=== PATIENT | female | born 1940 | race Caucasian/White ===

== ENCOUNTER → 2018-09-20 10:13 | Outpatient (CLI) | payer MEDICARE, BC, OTHER, SELFPAY ==
[2018-09-20 11:07] LABS: Add Manual Diff / Slide Review NO; Basophils Percent Auto 0.8 % (0-2); Eosinophils Percent Auto 3.1 % (2-4); Hematocrit 42.4 % (36-46); Hemoglobin 14.4 g/dL (12.0-16.0); Lymphocytes Percent Auto 19.9 % (25-40); Mean Corpuscular HGB Conc 34.1 % (30-36); Mean Corpuscular Hemoglobin 31.4 PG (26-34); Mean Corpuscular Volume 92.3 fL (80-100); Monocytes Percent Auto 9.6 % (3-14); Neutrophils Absolute Auto 4400 /uL (1500-7000); Neutrophils Percent Auto 66.6 % (50-75); Platelet Count 264 X10^3/uL (150-400); Red Blood Cell Count 4.59 X10^6/uL (4.0-5.2); Red Cell Distribution Width 13.8 % (11.6-14.8); White Blood Cell Count 6.7 X10^3/uL (4.5-11.0)
[2018-09-20 11:33] LABS: Alanine Aminotransferase 28 IU/L (9-52); Albumin 4.4 g/dL (3.5-5.0); Albumin Globulin Ratio 1.3 (1.0-2.8); Alkaline Phosphatase 80 U/L (38-126); Aspartate Aminotransferase 31 IU/L (14-36); BUN Creatinine Ratio 17.1 (6-22); Bilirubin Total 0.4 mg/dL (0.2-1.3); Blood Urea Nitrogen 12 mg/dL (7-17); Calcium 9.2 mg/dL (8.4-10.2); Carbon Dioxide 26 mmol/L (22-32); Chloride 104 mmol/L (98-107); Cholesterol 184 mg/dL (140-199); Estimated Glomerular Filt Rate > 60.0 mL/min (>60); Globulin 3.3 g/dL (1.7-4.1); Glucose 103 mg/dL (80-110); HDL Cholesterol 47 mg/dL (40-60); HEMOLYSIS < 15 (0-50); LDL Cholesterol Calculated 116 mg/dL (<100); Potassium 4.2 mmol/L (3.4-5.1); Sodium 143 mmol/L (137-145); Total Protein 7.7 g/dL (6.3-8.2); Triglycerides 105 mg/dL (35-150)
[2018-09-20 11:58] LABS: Thyroid Stimulating Hormone 3.57 uIU/mL (0.47-4.68)
== END ==
PROVIDERS: PCP Family Medicine; Visit Provider Family Medicine
DX: I10 Essential (primary) hypertension (principal)
CPT/HCPCS: 36415; 80053; 80061; 84443; 85025

== ENCOUNTER 2018-12-03 09:44 | Outpatient (CLI) | payer MEDICARE, OTHER, BC, SELFPAY ==
[2018-12-03] VITALS (12 sets, daily range): BP systolic 134–161; BP diastolic 69–93; PULSE 64–74; RESP 16–18; TEMP 36.6; O2SAT 89–97
--- NOTE | 2018-12-03 09:45 | DI.RAD.S_ITS ---
PROCEDURE: PAIN L INTERLAMINAR/CAUDAL INJ INDICATIONS: Lumbosacral spondylosis FINDINGS: Fluoroscopic spot filming was performed to verify placement of spinal needles at the L3-L4 level(s), as labeled on the films. Appropriate location(s) of the needle tip(s) was confirmed by injection of iodinated contrast. Dictated by: Maverick Barrios M.D. on 12/03/2018 at 12:47 Approved by: Maverick Barrios M.D. on 12/03/2018 at 12:47
[2018-12-03] MEDS: MIDAZOLAM 5 MG/5 ML VIAL IV (10:26)
[2018-12-03] MEDS: DEXAMETHASONE 10 MG/ML VIAL 20 MG INJ (10:33)
[2018-12-03] MEDS: IOPAMIDOL 15 ML VIAL 3 ML INJ (10:33)
[2018-12-03] MEDS: BUPIVACAINE 0.25% (PF) VIAL 2 ML INJ (10:33)
--- NOTE | 2018-12-03 10:38 | PC.NURSE ---
assisting pt off table and transporting to post proc area in stable condition
--- NOTE | 2018-12-03 10:42 | P.PCN_ITS ---
Procedures Date/Time Date of procedure: 12/03/18 Time of procedure: 10:41 General Procedure description: POST OP DIAGNOSIS 1. HNP WITH RADICULAR FEATURES, 2. MULTILEVEL CENTRAL STENOSIS, PROCEDURES 1. FLUORSCOPICALLY GUIDED CONTRAST CONTROLLED INTERLAMINAR EPIDURAL STEROID INJECTION - L3/4 PHYSICIAN: Chai Ellison, INDICATIONS Veronica is referred by for treatment of Bilateral Foraminal Stenosis L>R LE symptoms. FINDINGS Multilevel Central Spinal Stenosis with Nerve Root Compression DESCRIPTION OF PROCEDURE Fluoroscopically guided, contrast-controlled L3/4 translaminar epidural steroid injection. Following denial of allergy and review of potential side effects and complications, including, but not necessarily limited to, infection, allergic reaction, local tissue breakdown, temporary as well as permanent nerve injury, paralysis, stroke and possible , the patient indicated that the patient understood and agreed to proceed. An informed consent document was signed by the patient, witnessed by a nurse, and placed in the patient's chart. Additionally, other treatment options including modalities, medications, and physical therapy were reviewed with the patient. After review of previous anaesthesic history and IV conscious sedation the patient was deemed safe to proceed with todays procedure with IV conscious sedation as ASA class II designation. Safety time-out was performed to confirm p atient ID, procedure to be performed and site of procedure. IV sedation was accomplished with a combination of 3mg of Versed was administered by the RN after DO order, titrated to patient comfort during the course of the procedure while the patient remained responsive to all verbal commands. In the prone position, following sterile prep and drape of the lumbar region, the L3/4 translaminar space was identified fluoroscopically. The skin was anesthetized via a 25-gauge, 1.5-inch needle with 1% lidocaine solution. At this point, a 22-gauge short bevel spinal needle was atraumatically introduced and advanced under fluoroscopic guidance into the region of the L3/4 translaminar space. Depth was confirmed on lateral view. Radiological data, including multiple fluoroscopic views of the lumbar spine, reveal a spinal needle at the L3/4 translaminar space. Lateral views then show placement of the needle in the epidural space. Subsequent views show contrast material flowing superiorly and inferiorly in the epidural space. No vascular or intrathecal uptake is observed. At this point, using loss of resistance technique with saline and air, the epidural space was entered. This was confirmed following negative aspiration with injection of approximately 1.5 cc of Isovue 200, showing excellent epidural flow without vascular or intrathecal uptake. At this point, 1 cc of 1% lidocai ne solution combined with 2cc or 20mg of dexamethasone was injected without incident. The patient tolerated the procedure well without signs or symptoms of complications prior to transfer to the recovery area continued monitoring without incident. The patient was then transferred to the recovery area where they were observed for an appropriate period of time after the injection. The patient reported a VAS score of 6 prior to the procedure and a post- procedure VAS of 0. Total Fluoroscopy Time: 11.8 seconds Total Conscious Sedation Time: 24min POST OP INSTRUCTIONS The patient was provided a Pain Log to continue to record their response to the target-specific procedure prior to follow-up visit with their referring physician. Additionally, specific post-injection care instructions and a contact number to our office were provided if concerns arise regarding possible complications associated with the procedure are suspected. Chai Ellison DO Complications: none
--- NOTE | 2018-12-03 11:01 | PC.NURSE ---
pt returned post procedure a little groggy but able to move from w/c to chair on own power with direction. REsumed monitoring from Anne FERGUSON.
--- NOTE | 2018-12-03 11:03 | PC.NURSE ---
instructed pt to take some deep breaths related to lower oxygen level. it bumped up to 97%
--- NOTE | 2018-12-03 11:09 | PC.NURSE ---
Turned oxygen off to see if she can maintain without it.
--- NOTE | 2018-12-03 11:12 | PC.NURSE ---
She was awake enough to take some deep breaths and her o2 went up to 97% then back down to 92%
--- NOTE | 2018-12-03 11:20 | PC.NURSE ---
pt awakens easily, her o2 sat dropped and I asked her to take a deep breath. When asked if she has sleep apnea she said yes. Once she wakes up her sats are 95-97% but when she is dozing she is down to 89-92%. She doesn't feel ready to go just yet.
--- NOTE | 2018-12-03 11:46 | PC.NURSE ---
pt tolerated standing up, she woke up on her own. Maintained 02 sats at 92% while dozing and increased when she was alert and awake. pt discharged to home with her son without problems.
--- NOTE | 2018-12-04 15:57 | PC.NURSE ---
Follow up call for post TL LURDES made and pt reports she normally has insomnia so that wasn't unusual. Her right side feels really good but the left side she is good for about 10 and then she has to sit down. She is hoping it will get better. Otherwise she is doing well.
== END 2018-12-03 11:43 ==
LOC: RAD 09:45
PROVIDERS: PCP Family Medicine; Visit Provider Physical Medicine & Rehabilitation
DX: M51.16 Intervertebral disc disorders with radiculopathy, lumbar region (principal); M48.062 Spinal stenosis, lumbar region with neurogenic claudication; M43.16 Spondylolisthesis, lumbar region; M47.27 Other spondylosis with radiculopathy, lumbosacral region
CPT/HCPCS: 62323; 99152; J1100; J2250

== ENCOUNTER → 2019-08-28 10:46 | Outpatient (CLI) | payer MEDICARE, BC, OTHER, SELFPAY ==
--- NOTE | 2019-08-28 10:48 | DI.RAD.S_ITS ---
PROCEDURE: XR SHOULDER LT MIN 2V INDICATIONS: Pain TECHNIQUE: 3 views of the shoulder were acquired. COMPARISON: [facility], , SHOULDER MINIMUM 2 VIEW LEFT, 02/17/2014, 16:37. FINDINGS: Bones: No acute fracture dislocation. Mild degenerative changes are present at the acromioclavicular joint and severe degenerative changes are present at the glenohumeral joint. Visualized ribs are intact. Soft tissues: No suspicious soft tissue calcifications. IMPRESSION: Degenerative change. Dictated by: Mila Crowell M.D. on 08/28/2019 at 11:36 Approved by: Mila Crowell M.D. on 08/28/2019 at 11:36
== END ==
PROVIDERS: PCP Family Medicine; Visit Provider Family Medicine
DX: M25.512 Pain in left shoulder (principal)
CPT/HCPCS: 73030

== ENCOUNTER → 2019-11-25 10:47 | Outpatient (CLI) | payer MEDICARE, OTHER, SELFPAY ==
[2019-11-25 13:08] LABS: Add Manual Diff / Slide Review NO; Basophils Absolute Auto 100 /uL (0-100); Basophils Percent Auto 0.6 % (0-2); Eosinophils Absolute Auto 200 /uL (0-450); Hematocrit 40.1 % (36-46); Hemoglobin 13.7 g/dL (12.0-16.0); Lymphocytes Absolute Auto 1400 /uL (1100-4500); Lymphocytes Percent Auto 17.2 % (25-40); Mean Corpuscular HGB Conc 34.2 % (30-36); Mean Corpuscular Volume 93.5 fL (80-100); Monocytes Absolute Auto 700 /uL (0-900); Monocytes Percent Auto 8.1 % (3-14); Neutrophils Absolute Auto 5900 /uL (1500-7000); Neutrophils Percent Auto 72.1 % (50-75); Platelet Count 292 X10^3/uL (150-400); Red Blood Cell Count 4.28 X10^6/uL (4.0-5.2); Red Cell Distribution Width 14.4 % (11.6-14.8); White Blood Cell Count 8.2 X10^3/uL (4.5-11.0)
[2019-11-25 13:48] LABS: BUN Creatinine Ratio 24.3 (6-22); Blood Urea Nitrogen 17 mg/dL (7-17); Calcium 9.6 mg/dL (8.4-10.2); Carbon Dioxide 29 mmol/L (22-32); Chloride 102 mmol/L (98-107); Estimated Glomerular Filt Rate > 60.0 mL/min (>60); Glucose 83 mg/dL (80-110); HEMOLYSIS < 15 (0-50); Potassium 4.4 mmol/L (3.4-5.1); Sodium 140 mmol/L (137-145)
== END ==
PROVIDERS: PCP Family Medicine; Referring Provider Family Medicine; Visit Provider Family Medicine
DX: Z01.818 Encounter for other preprocedural examination (principal); Z01.812 Encounter for preprocedural laboratory examination; I10 Essential (primary) hypertension
CPT/HCPCS: 36415; 80048; 85025; 93005; 93010

== ENCOUNTER → 2020-03-01 12:36 | Outpatient (CLI) | payer MEDICARE, OTHER, BC, SELFPAY ==
[2020-03-01 13:25] LABS: Add Manual Diff / Slide Review NO; Basophils Absolute Auto 0 /uL (0-100); Basophils Percent Auto 0.6 % (0-2); Eosinophils Absolute Auto 100 /uL (0-450); Eosinophils Percent Auto 1.8 % (2-4); Hematocrit 41.7 % (36-46); Lymphocytes Absolute Auto 1100 /uL (1100-4500); Lymphocytes Percent Auto 14.3 % (25-40); Mean Corpuscular HGB Conc 33.7 % (30-36); Mean Corpuscular Hemoglobin 31.3 PG (26-34); Monocytes Absolute Auto 600 /uL (0-900); Monocytes Percent Auto 7.4 % (3-14); Neutrophils Absolute Auto 6000 /uL (1500-7000); Neutrophils Percent Auto 75.9 % (50-75); Platelet Count 272 X10^3/uL (150-400); Red Blood Cell Count 4.49 X10^6/uL (4.0-5.2); Red Cell Distribution Width 13.8 % (11.6-14.8); White Blood Cell Count 7.9 X10^3/uL (4.5-11.0)
[2020-03-01 13:55] LABS: Carbon Dioxide 26 mmol/L (22-32); Chloride 106 mmol/L (98-107); HEMOLYSIS < 15 (0-50); Potassium 4.8 mmol/L (3.4-5.1); Sodium 139 mmol/L (137-145)
== END ==
PROVIDERS: PCP Family Medicine; Referring Provider Orthopaedic Surgery; Visit Provider Orthopaedic Surgery
DX: Z01.812 Encounter for preprocedural laboratory examination (principal); Z01.818 Encounter for other preprocedural examination
CPT/HCPCS: 36415; 80051; 85025

== ENCOUNTER → 2020-03-07 11:24 | Outpatient (CLI) | payer MEDICARE, OTHER, BC, SELFPAY ==
[2020-03-08 02:48] LABS: COVID19 Sendout Not Detected (Not Detect)
== END ==
PROVIDERS: PCP Family Medicine; Visit Provider Physician Assistant
DX: Z01.812 Encounter for preprocedural laboratory examination (principal)
CPT/HCPCS: 87635

== ENCOUNTER 2020-03-10 06:45 | Day surgery (SDC) | payer MEDICARE, OTHER, SELFPAY ==
[2020-03-04 13:51] VITALS: BMI 40.8
[2020-03-10] VITALS (24 sets, daily range): BP systolic 97–152; BP diastolic 49–96; PULSE 55–77; RESP 12–22; TEMP 36.1–36.6; O2SAT 88–99; BMI 40.2
--- NOTE | 2020-03-10 | DI.RAD.S_ITS ---
PROCEDURE: XR KNEE LT 1TO2V INDICATIONS: LEFT TOTAL KNEE TECHNIQUE: 2 view(s) of the knee acquired. COMPARISON: None. FINDINGS: Bones: Patient is status post knee joint arthroplasty. Hardware components are in expected positions. Visualized bony structures are intact. Soft tissues: Overlying postoperative changes are noted. IMPRESSION: Expected postsurgical changes with total knee arthroplasty. Dictated by: Freddie Arreola M.D. on 03/10/2020 at 10:36 Approved by: Freddie Arreola M.D. on 03/10/2020 at 10:37
[2020-03-10] MEDS: LACTATED RINGERS 1,000 ML 42 ML IV ×2 (07:20→08:53)
[2020-03-10] MEDS: ACETAMINOPHEN 325 MG TABLET 975 MG PO (07:35)
--- NOTE | 2020-03-10 07:40 | PM.PREOP ---
Pre-operative Note COVID-19 COVID-19 status: Negative Result date/Date tested (Pos, Neg/Pending): 03/08/20 Interval Note History & Physical reviewed/Exam performed by Physician: Yes Changes to H&P: No
--- NOTE | 2020-03-10 07:41 | PM.OP.1 ---
Operative Date/Time/Diagnoses Date of procedure: 03/10/20 Time of procedure: 09:30 Pre-op diagnosis: Left knee osteoarthritis Post-op diagnosis: same Procedure & Clinicians Procedure: Left total knee arthroplasty Same procedure as scheduled: Yes Indications: The patient presents today for total knee arthroplasty after failure of conservative treatment. The nature of the procedure including the risks and benefits, alternatives, postoperative course and expected outcome were discussed and all questions answered. Consent was obtained. Operative site confirmed and marked. Surgeon: Frank Omalley Band Builder: Damaris Torres Anesthesia Type: General, Spinal and Local Operative Notes Findings: The patient's knee was in valgus alignment. Lateral capsule was released with a 15 blade in a pie crust technique to balance the knee. The knee then had excellent patellar tracking, balance and stability throughout motion. The standard +0 femoral cut was made and approximately 8 mm removed from the less affected medial side. Closure Type: primary Specimen(s): none sent Prosthetic devices, grafts, tissues, transplants, or devices: Val[employer]hew [employer]o BCS: 6 femoral component, 4 tibial component, 9 mm BCS polyethylene tray and 35 x 9 mm round patella Applied: implant(s) Estimated Blood Loss (mL): 10 Blood products transfused: none Tourniquet time (min): 60 Procedure in detail: The patient was taken to the operative suite and placed under anesthesia. The patient was given prophylactic antibiotics prior to surgery. The patient was also given tranexamic acid, 1 g, just prior to surgery for postoperative hemostasis. The lateral knee was prepped and the joint injected with 20 mL of 1% Lidocaine with epinephrine. The knee was then prepped and draped in usual sterile fashion. The leg was exsanguinated with an Esmarch dressing and the tourniquet raised to 250 torr. A 15 cm anterior incision was made. Next a medial trivector arthrotomy was made. The extensor mechanism was marked to ensure accurate repair. Initial exposing dissection was carried out medially and laterally. The knee was then flexed and the intramedullary femoral guide julio placed. The distal femoral cut was made in 6? of valgus at the +0 position. The femoral size was measured and the appropriate cutting block was then placed and the anterior, posterior and chamfer cuts made. The intramedullary tibial alignment julio was then placed. The guide was set to remove approximately 8 mm from the less affected medial side. The proximal tibial cut was then made with an oscillating saw. All meniscus and bony debris was then removed. Posterior femoral osteophytes removed with a curved osteotome. Flexion extension gaps were checked. The knee was tight laterally as expected from her preoperative alignment. This was corrected with percutaneous release of the lateral capsule using a 15 blade in a pie crust technique. The soft tissues were then injected with a combination of 20 mL of half percent Marcaine with epinephrine and 20 mL of Exparel. The trial components were then placed. The knee was then extended and the patellar thickness was measured and a cut made removing approximately 9 mm of bone. The patella was then sized and drilled. Some excess lateral bone was excised and the patellofemoral ligament released. The knee went into full extension and flexion beyond 130?. There was excellent medial-lateral balance throughout motion. Patellar tracking was excellent. The trial components were removed and the knee was cleansed with Pulsavac irrigation and dried. The final components were cemented with high viscosity vacuum mixed bone cement with antibiotics. The joint was filled with a dilute Betadine solution. The knee was held in extension and the patellar clamped until the cement was adequately cured. The knee was then irrigated. The extensor mechanism was closed with 5 interrupted #1 Vicryl sutures and a running Quill suture at approximately 90 degrees of flexion. The joint was then injected with a combination of 1 g of tranexamic acid and 20 mL of quarter percent Marcaine with epinephrine. The subcutaneous tissue was closed with 2 0 Vicryl. The skin was closed with absorbable subcuticular sutures and surgical adhesive. An Aquacel dressing and Tom wrap were then applied. The patient tolerated the procedure well and was returned to recovery room in good condition. Complications: none Post-operative Condition: stable Disposition: PACU Plan for aftercare: [facility] protocol
[2020-03-10] MEDS: CEFAZOLIN 2 GM/100 ML FROZ.PIGGY IV ×2 (07:45→16:10)
--- NOTE | 2020-03-10 08:22 | SUR.OPER ---
Supine on padded OR bed. Pillow under head, arms secured on padded armboards <90 degree abduction. Safety belt across torso. Non-operative leg secured with tape over blanket over lower leg. Operative leg secured in [place] positioner. Foam padded brace at thigh of operative leg.
[2020-03-10] MEDS: BUPIVACAINE 0.5% W/ EPI (PF) 20 ML, BUPIVACAINE LIPOSOME 266 MG, SODIUM CHLORIDE 0.9% 2... INJ (08:30)
[2020-03-10] MEDS: BUPIVACAINE 0.5% W/ EPI (PF) 10 ML, TRANEXAMIC ACID 1,000 MG, SODIUM CHLORIDE 0.9% 20 ML INJ (08:34)
[2020-03-10] MEDS: LIDOCAINE 1% W/EPI 20 ML INJ (08:35)
--- NOTE | 2020-03-10 11:00 | SUR.PHASEI ---
Pt to room 204 per bed with 2 RN's, bedside report to RN, SCD's hooked up and first set of vitals taken, checked OP Site with RN, pt talking and taking ice Chips, denies pain and nausea.
[2020-03-10] MEDS: LACTATED RINGERS 1,000 ML 100 ML IV ×2 (11:16→22:09)
[2020-03-10] MEDS: OXYCODONE IR 10 MG TABLET PO (12:09)
[2020-03-10] MEDS: IBUPROFEN 400 MG TABLET PO ×2 (13:37→16:11)
[2020-03-10] MEDS: ACETAMINOPHEN 325 MG TABLET 650 MG PO ×2 (13:38→20:24)
[2020-03-10] MEDS: HYDROMORPHONE 0.5 MG INJ 0.2 MG IV (13:38)
--- NOTE | 2020-03-10 14:30 | PT.IIE ---
Current Diagnoses Loose body in unspecified joint (03/10/20) Other tear of lateral meniscus, current injury, left knee, initial encounter (03/10/20) Surgery Performed Operation Date: 03/10/20 07:45 Actual Procedures p Total Knee Arthroplasty(Left) - Frank Omalley MD Surgical History (Last Updated 03/04/20 @ 14:09 by Char Garland, RN) History of bunionectomy of left great toe (Acute) History of esophagogastroduodenoscopy (EGD) (Acute) Hx of bilateral cataract extraction (Acute) Hx of tonsillectomy (Acute) Medical History (Last Updated 03/04/20 @ 14:09 by Char Garland RN) Back pain (Acute) Depression (Acute) Dermatitis (Acute) DJD (degenerative joint disease) (Acute) Esophageal spasm (Acute) Foraminal stenosis of lumbar region (Chronic) Former smoker (Acute) GERD (gastroesophageal reflux disease) (Acute) Headache, migraine (Acute) HTN (hypertension) (Acute) LBBB (left bundle branch block) (Acute) RASHI (obstructive sleep apnea) (Acute) Sinusitis (Acute) Physical Therapy Inpatient Evaluation/Re-Eval M1 PT/OT-IP Prior Functional Status Start: 03/10/20 17:27 Freq: NEEDED Status: Active Protocol: Document 03/10/20 14:30 AB (Rec: 03/10/20 17:49 AB [id number]) Medical Review Prior Functional Status Medical History Reviewed Yes Communication able to make needs known Mobility and Gait pt stated that she is independent with all mobilities and ambulation without AD indoors but occsionally uses her 4WW ; uses 4WW for outdoor mobility Social History Household Members children,other Living Arrangements House Number of Floors (Floors) One Floor Number of Stairs To Enter/Railing? no steps to enter Home Environment High Toilet,Tub/Shower Home Equipment Four Wheel Walker,Hand Held Shower,Grab Bars Near Toilet, Grab Bars In Shower Additional Social History Comment pt lives with her grand daughter and grand daughter's spouse but both works pt has a toilet safety frame and an adjustable bed M2 PT-IP Current Condition Start: 03/10/20 17:27 Freq: NEEDED Status: Active Protocol: Document 03/10/20 14:30 AB (Rec: 03/10/20 17:49 AB [id number]) Physical Therapy Current Condition Current Condition Evaluation Date 03/10/20 Treatment Diagnosis s/p L TKA; difficulty in walking Onset Date 03/10/20 Weight Bearing Status Weight Bearing Status Weight Bear as Tolerated Allowed Weight Bearing Amount (enter % LLE WBAT or #) (%) M3 PT-IP Subjective Start: 03/10/20 17:27 Freq: NEEDED Status: Active Protocol: Document 03/10/20 14:30 AB (Rec: 03/10/20 17:49 AB [id number]) Subjective Physical Therapy Visit Type Type Initial Evaluation Visit Start Time 14:30 Visit Stop Time 15:15 Total Visit Minutes 45 Number of GEAR KEEPER Visits 0 Physical Therapy Visit Comments Patient Comments pt agreeable to do PT Therapy Pain Assessment Pain When Pain Assessed At Rest Pain Present Pain Present Pain Reported Location Left Knee Intensity 5 Scale Used Numeric (0 - 10) Pain Management Techniques Apply Cold,Re-positioning, Timing of Activity with Medications M4 PT-IP Mobility and Gait Start: 03/10/20 17:27 Freq: NEEDED Status: Active Protocol: Document 03/10/20 14:30 AB (Rec: 03/10/20 17:49 AB [id number]) PT-Bed Mobility Assessment Supine to Sit Supine to Sit Standby Assistance Sit to Supine Sit to Supine Standby Assistance Scooting Scooting to Edge of Bed Standby Assistance PT-Transfer Assessment Sit to and From Stand Sit to and from Stand Contact Guard Assistance, Minimal Assistance,1 Person Assistance,Use of Upper Extremities Equipment Transfer Assistive Device Gait Belt,Front Wheeled Walker Orthotic/Prosthetic Devices or Brace: No Transfers Transfer Destination Chair,Bedside Commode Transfer Technique Stand Step Pivot Transfer Ability Level of Assist Contact Guard Assistance, Minimal Assistance,1 Person Assistance,Use of Upper Extremities Comments Mobility Comments completed supine to sit SBA. required SBA for sitting on EOB. pt stated that she is leaking upon sitting. bedside commode positioned next to pt . completed sit to stand CGA to min A and completed step transfer using FWW min A. completed sit to stand from commode CGA and ambulated towards the chair ~ 12 ft min A. pt without any complains and agreed to walk more and completed ambulation using FWW ~ 35 ft CGA to min A. pt agreed to sit up on chair. positioned pt on chair. call light and table placed within reach. Gait Assessment Gait Gait Assistance Required: Contact Guard Assist,Minimum Assistance Distance (Feet) 35 Able to Maintain Weight Bearing Status Yes During Gait Assistive Devices Assistive Device Gait Belt,Front Wheeled Walker Orthotic/Prosthetic Devices or Brace: No Gait Deviations General Gait Pattern Antalgic,Decreased Stride Length,Decreased Feet Clearance Factors Limiting Gait Function Factors Limiting Gait Function Decreased Activity Tolerance, Decreased Strength,Limited Range of Motion,Pain,Poor Balance,Poor Safety Awareness Comments Gait Comments pls refer to mobility section for details; presents with unsteady gait and requires cues for L quads activation and very reliant on BUE on FWW for support. PT-Balance Assessment Sitting Balance and Reactions Static Sitting Balance Ability Good Dynamic Sitting Balance Ability Good Standing Balance and Reactions Static Standing Balance Ability Fair Dynamic Standing Balance Ability Fair Device Used FWW M5 PT-IP Objective Assessments Start: 03/10/20 17:27 Freq: NEEDED Status: Active Protocol: Document 03/10/20 14:30 AB (Rec: 03/10/20 17:49 AB [id number]) Orientation Orientation/Cognition Level of Alertness Alert Orientation Name,Place,Situation Safety Awareness Decreased Safety Awareness Gross Range of Motion Lower Extremity ROM Impairments L knee flexion: ~ 70 deg Strength Lower Extremity Strength Assessment Left Impaired Hip 4-/5 Knee 3+/5 Coordination Assessment Gross Coordination Gross Coordination WNL Sensation Assessment Sensation Sensation Description Numbness Comments Sensation Comments stated that she still cannot feel her buttocks Muscle Tone Muscle Tone WNL Yes M6 PT-IP Treatment Start: 03/10/20 17:27 Freq: NEEDED Status: Active Protocol: Document 03/10/20 14:30 AB (Rec: 03/10/20 17:49 AB [id number]) Physical Therapy Treatment Exercises Exercises Ankle Pumps,Heel Slides Education Education Provided Precautions,Weight Bearing Status,Post-Op Packet,Safety M7 PT-IP Assessment and Plan Start: 03/10/20 17:27 Freq: NEEDED Status: Active Protocol: Document 03/10/20 14:30 AB (Rec: 03/10/20 17:49 AB [id number]) PT Summary Assessment and Plan Potential Rehabilitation Potential Good Status of Condition at Evaluation Stable Summary Impairments Pain,ROM,Strength,Balance, Coordination,Sensation,Bed Mobility,Transfers,Gait, Activity Tolerance Assessment Summary pt s/p L TKA this morning and currently requiring CGA for mobility. pt will likely progress with mobility and pt plans to go home and stated that she is set up for outpt PT. pt does not have a FWW but stated that her grand daughter might be able to get one for her. will have to f/u with pt regarding FWW. will continue to assess progress for safe d/c plan. Goals Bed Mobility Goal Independent Transfer Goal Independent,Front Wheeled Walker,Four Wheeled Walker Gait Goal Independent,Front Wheel Walker ,Four Wheel Walker Gait Distance 150 Days to Meet Goals 5 Frequency of Treatment Frequency Of Treatment Twice a Day Treatment Plan Physical Therapy Treatment Plan Bed Mobility Training,Transfer Training,Gait Training, Therapeutic Exercise,Balance Retraining,Post Op Education, Discharge Planning,Hot or Cold Pack,Neuromuscular Re-ed, Coordination Retraining,Manual Therapy Other Recommendations and Next Treatment ambulation using 4WW if Focus appropriate Recommendations To Nursing Amount of Assist Needed 1 Person Assist Discharge Recommendations PT Discharge Recommendations Home with Assistance, Outpatient PT Equipment Needed for Home Before FWW Discharge Transportation Needs at Discharge Private Vehicle
[2020-03-10] MEDS: HYDROMORPHONE 2 MG TABLET PO ×2 (16:12→20:24)
--- NOTE | 2020-03-10 16:43 | PC.NURSE ---
Addendum entered by Glo Toribio R.N. 03/10/20 23:29: Pt requested mesh tubular stocking to be used as jaw strap to help hold mouth shut while sleeping with C-PAP. 2L O2 bleed-in to home C-PAP. Original Note: Assumed care of pt at 1500. Pt working with P.T. during bedside hand-off. Drsg with marianna wrap to L. knee c/d/i. No drains or bliss. Voided since arrival to unit. CMS+. CPOX on. CPAP set-up at bedside. Medicating per nov. Supportive family at bedside. Call light within reach. Pt verbalized she will call for needs.
[2020-03-10] MEDS: ASPIRIN EC 81 MG TABLET PO (20:24)
[2020-03-10] MEDS: DOCUSATE 100 MG CAPSULE PO (20:24)
[2020-03-10] MEDS: CALCIUM CARBONATE 600 MG TABLET PO (20:26)
[2020-03-11] MEDS: CEFAZOLIN 2 GM/100 ML FROZ.PIGGY IV (00:03)
[2020-03-11] MEDS: IBUPROFEN 400 MG TABLET PO ×2 (01:07→05:12)
--- NOTE | 2020-03-11 01:39 | PC.NURSE ---
Addendum entered by Francia Nagel R.N. 03/11/20 05:54: Patient called and states oximeter is again alarming when she falls asleep; noted on monitor that sat again 89-90% so increased oxygen to 3L/min. Addendum entered by Francia Nagel R.N. 03/11/20 05:47: 0512 Patient reports oximeter has been alarming and noted that sat has been 88-90% so increased oxygen to 2.5L/min bled in to CPAP. Addendum entered by Francia Nagel R.N. 03/11/20 03:43: States pain is 6/10 after having been up to bathroom; medicated with Dilaudid and ice applied. Original Note: Patient seen and assessed at 0010. Is alert and oriented. Breath sounds CTA. Using home CPAP with oxygen bled in at 2L/min with sat of 95% (reportedly was dropping to low 90's without the oxygen). HRR but bradycardic with rate in 50's. Denies nausea. BT present and is passing flatus. Voiding on toilet; denies dysuria, frequency or urgency. Is able to turn self in bed. Up with walker and 1 assist; denies weakness or pain in leg. Aquacel dressing covered with marianna wrap to left knee is CDI. Has chronic bilateral foot neuropathy but otherwise has good CMS. Wearing bilateral calf SCD's. Fall risk score is moderate; bed alarm is activated.
[2020-03-11 03:39] VITALS: BP 126/92; PULSE 63; RESP 18; TEMP 36.2; O2SAT 98
[2020-03-11] MEDS: HYDROMORPHONE 2 MG TABLET PO ×2 (03:40→08:07)
[2020-03-11] MEDS: PANTOPRAZOLE 40 MG TABLET PO (05:12)
--- NOTE | 2020-03-11 07:18 | PM.PNPO.1 ---
Subjective Subjective Date Patient Seen: 03/11/20 Time Patient Seen: 07:19 Interval history: The patient is doing well this morning. She slept well overnight and her pain is well controlled. Exam Vital Signs (past 8 hours): - 03/10/20 23:40 03/11/20 03:39 Temperature 97.0 F L 97.2 F L Pulse Rate 61 63 Respiratory Rate 18 18 Blood Pressure 121/65 126/92 H Pulse Oximetry 95 98 Oxygen Delivery Method Nasal Cannula,CPAP Oxygen Flow Rate 2 Narrative Exam Narrative: The dressing is clean and dry. Leg is neurovascularly intact. Expected swelling. Objective Labs Result Diagrams: 03/11/20 06:48 Assessment & Plan Post-op Postoperative Procedures: Procedures Operation Date: 03/10/20 07:45 Actual Procedures Side Surgeon p Total Knee Arthroplasty Left Frank Omalley MD Postoperative day: 1 Postoperative status narrative: The patient is progressing as expected. Will discharge to home today. [facility] protocol. Time Spent With Patient Time with patient: less than 15 minutes
[2020-03-11 07:20] LABS: Hematocrit 34.7 % (36-46)
[2020-03-11 08:02] VITALS: BP 124/62; PULSE 65; RESP 16; TEMP 36; O2SAT 91
[2020-03-11] MEDS: ACETAMINOPHEN 325 MG TABLET 650 MG PO (08:06)
[2020-03-11] MEDS: ASPIRIN EC 81 MG TABLET PO (08:06)
[2020-03-11] MEDS: DOCUSATE 100 MG CAPSULE PO (08:06)
[2020-03-11] MEDS: INFLUENZA VACCINE 0.5 ML SYRINGE IM (08:15)
--- NOTE | 2020-03-11 08:50 | PT.IPTN ---
Current Diagnoses Loose body in unspecified joint (03/10/20) Other tear of lateral meniscus, current injury, left knee, initial encounter (03/10/20) Surgery Performed Operation Date: 03/10/20 07:45 Actual Procedures p Total Knee Arthroplasty(Left) - Frank Omalley MD Physical Therapy Treatment Note M2 PT-IP Current Condition Start: 03/10/20 17:27 Freq: NEEDED Status: Discharge Protocol: Document 03/10/20 14:30 AB (Rec: 03/10/20 17:49 AB [id number]) Physical Therapy Current Condition Current Condition Evaluation Date 03/10/20 Treatment Diagnosis s/p L TKA; difficulty in walking Onset Date 03/10/20 Weight Bearing Status Weight Bearing Status Weight Bear as Tolerated Allowed Weight Bearing Amount (enter % LLE WBAT or #) (%) M3 PT-IP Subjective Start: 03/10/20 17:27 Freq: NEEDED Status: Discharge Protocol: Document 03/11/20 08:50 AB (Rec: 03/11/20 11:16 AB [id number]) Subjective Physical Therapy Visit Type Type Treatment Note Visit Start Time 08:50 Visit Stop Time 09:17 Total Visit Minutes 27 Number of SURFACE WATER TECHNICIAN Visits 0 Physical Therapy Visit Comments Patient Comments agreeable to do PT Therapy Pain Assessment Pain When Pain Assessed At Rest Pain Present Pain Present Pain Reported Location Left Knee Intensity 6 Scale Used Numeric (0 - 10) Pain Management Techniques Apply Cold,Modification of Treatment,Re-positioning, Timing of Activity with Medications M4 PT-IP Mobility and Gait Start: 03/10/20 17:27 Freq: NEEDED Status: Discharge Protocol: Document 03/11/20 08:50 AB (Rec: 03/11/20 11:16 AB [id number]) PT-Bed Mobility Assessment Sit to Supine Sit to Supine Standby Assistance,1 Person Assistance PT-Transfer Assessment Sit to and From Stand Sit to and from Stand Standby Assistance,1 Person Assistance,Use of Upper Extremities Equipment Transfer Assistive Device Gait Belt,Front Wheeled Walker Orthotic/Prosthetic Devices or Brace: No Transfers Transfer Destination Bed Transfer Technique ambulated using FWW Transfer Ability Level of Assist Standby Assistance,Contact Guard Assistance,1 Person Assistance,Use of Upper Extremities Comments Mobility Comments pt sitting on chair and agreeable to do PT. completed sit to stand SBA and ambulated ~ 100 ft using FWW SBA with occasional CGA and cues for posture and safety. pt ambulated back to her room and requested to go back to bed. completed sit to supine SBA. positioned pt in bed. call light and table placed within reach. ice pack provided. dispensed FWW to pt and paper signed by grand daughter. Gait Assessment Gait Gait Assistance Required: Standby Assistance,Contact Guard Assist Distance (Feet) 100 Able to Maintain Weight Bearing Status Yes During Gait Assistive Devices Assistive Device Gait Belt,Front Wheeled Walker Orthotic/Prosthetic Devices or Brace: No Gait Deviations General Gait Pattern Antalgic,Decreased Stride Length,Decreased Feet Clearance Factors Limiting Gait Function Factors Limiting Gait Function Decreased Activity Tolerance, Decreased Strength,Limited Range of Motion,Pain,Poor Balance,Poor Safety Awareness, Respiratory Distress M5 PT-IP Objective Assessments Start: 03/10/20 17:27 Freq: NEEDED Status: Discharge Protocol: Document 03/10/20 14:30 AB (Rec: 03/10/20 17:49 AB [id number]) Orientation Orientation/Cognition Level of Alertness Alert Orientation Name,Place,Situation Safety Awareness Decreased Safety Awareness Gross Range of Motion Lower Extremity ROM Impairments L knee flexion: ~ 70 deg Strength Lower Extremity Strength Assessment Left Impaired Hip 4-/5 Knee 3+/5 Coordination Assessment Gross Coordination Gross Coordination WNL Sensation Assessment Sensation Sensation Description Numbness Comments Sensation Comments stated that she still cannot feel her buttocks Muscle Tone Muscle Tone WNL Yes M6 PT-IP Treatment Start: 03/10/20 17:27 Freq: NEEDED Status: Discharge Protocol: Document 03/11/20 08:50 AB (Rec: 03/11/20 11:16 AB [id number]) Physical Therapy Treatment Education Education Provided Safety Equipment Issued Equipment Type and Company FWW from [employer]: paper signed by grand daughter with pt's consent M7 PT-IP Assessment and Plan Start: 03/10/20 17:27 Freq: NEEDED Status: Discharge Protocol: Document 03/11/20 08:50 AB (Rec: 03/11/20 11:16 AB [id number]) PT Summary Assessment and Plan Potential Rehabilitation Potential Good Summary Impairments Pain,ROM,Strength,Balance, Coordination,Sensation,Tone, Cognition,Bed Mobility, Transfers,Gait,Activity Tolerance Progress Towards Goals Progressing Toward Goals Assessment Summary pt requiring SBA to CGA with mobility and plans to go home and her grand daughter will assist pt. pt has outpt PT set up already. pt may go home when medically stable. Goals Bed Mobility Goal Independent Transfer Goal Independent,Front Wheeled Walker,Four Wheeled Walker Gait Goal Independent,Front Wheel Walker ,Four Wheel Walker Gait Distance 150 Days to Meet Goals 5 Frequency of Treatment Frequency Of Treatment Twice a Day Treatment Plan Physical Therapy Treatment Plan Bed Mobility Training,Transfer Training,Gait Training, Therapeutic Exercise,Balance Retraining,Post Op Education, Discharge Planning,Hot or Cold Pack,Neuromuscular Re-ed, Coordination Retraining,Manual Therapy Other Recommendations and Next Treatment ambulation using 4WW if Focus appropriate Recommendations To Nursing Amount of Assist Needed 1 Person Assist Discharge Recommendations PT Discharge Recommendations Home with Assistance, Outpatient PT Equipment Needed for Home Before FWW Discharge Transportation Needs at Discharge Private Vehicle
--- NOTE | 2020-03-11 10:57 | PC.NURSE ---
Discharge instructions and home care handouts reviewed with patient, she states understanding and has no further questions or concerns at this time. Aquacel and marianna wrap remain intact. +CMS, using walker for ambulation (ordered/delivered via PT). IV dc'd intact. Patient instructed to call surgeons office with questions or concerns. Patient has follow up appointment scheduled. Escorted out via wheelchair with all belongings to be discharged to home with her granddaughter.
--- NOTE | 2020-03-11 14:10 | CM.IDA ---
Initial DCP Assessment Note: Pt is an 79 yo female, resident of [place], now POD#1 from Left knee surgery w/ Dr Omalley PCP: Chalino Smith Payer: [facility] Reviewed chart, pt discussed in multidisciplinary rounds this morning. Therapy has cleared pt for return home w/family to assist and pt has planned for home, DC order from Ortho has already been initiated this morning. No needs expected from DC planning team although will remain available in case this changes today. DAVID Lee
== END 2020-03-11 11:07 | disposition home or self-care (01) ==
LOC: OR 06:48 → AC 06:54
PROVIDERS: PCP Family Medicine; Referring Provider Family Medicine; Visit Provider Orthopaedic Surgery
PROC: 0SRD0JZ Replacement of Left Knee Joint with Synthetic Substitute, Open Approach (ICD-10-PCS; CPT 27447; principal; 2020-03-10 07:45)
DX: M17.12 Unilateral primary osteoarthritis, left knee (principal); S83.282A Other tear of lateral meniscus, current injury, left knee, initial encounter; Z23 Encounter for immunization; M21.062 Valgus deformity, not elsewhere classified, left knee; E66.9 Obesity, unspecified; G47.33 Obstructive sleep apnea (adult) (pediatric); Z68.39 Body mass index [BMI] 39.0-39.9, adult; I10 Essential (primary) hypertension; K21.9 Gastro-esophageal reflux disease without esophagitis
CPT/HCPCS: 27447; 36415; 73560; 85014; 85018; 90471; 90656; 97116; 97161; 97530; C1776; C9290; J0690; J1170; J2250; J2405; J2704; J3010; Q2038

== ENCOUNTER → 2020-07-13 14:43 | Outpatient (CLI) | payer MEDICARE, OTHER, SELFPAY ==
[2020-03-10 11:17] VITALS: BMI 40.2
--- NOTE | 2020-07-13 | DI.CT.S_ITS ---
PROCEDURE: CT UE LT WO CON INDICATIONS: PAIN IN LEFT SHOULDER TECHNIQUE: Noncontrast 1-1.5 mm thick sections acquired from the acromioclavicular joint to the inferior scapula, with coronal and sagittal reformatting. COMPARISON: None. FINDINGS: Image quality: Excellent. Bones: No fracture. Severe glenohumeral joint degeneration with [id number] appearance, Scattered degenerative subchondral sclerosis and spurring. There is posterior subluxation of the humeral head relative to glenoid. Severe AC joint degeneration. Soft tissues: Visualized left lung is unremarkable save for scattered scarring/atelectasis. No pathologically enlarged lymphadenopathy. IMPRESSION: Severe left shoulder joint degeneration as above Dictated by: Maverick Barrios M.D. on 07/14/2020 at 8:20 Approved by: Maverick Barrios M.D. on 07/14/2020 at 8:23
== END ==
PROVIDERS: PCP Family Medicine; Referring Provider Orthopaedic Surgery; Visit Provider Orthopaedic Surgery
DX: M25.512 Pain in left shoulder (principal); M19.012 Primary osteoarthritis, left shoulder
CPT/HCPCS: 73200

== ENCOUNTER → 2020-07-28 11:36 | Outpatient (CLI) | payer MEDICARE, OTHER, SELFPAY ==
[2020-03-10 11:17] VITALS: BMI 40.2
[2020-07-28 12:57] LABS: Add Manual Diff / Slide Review NO; Basophils Absolute Auto 0 /uL (0-100); Basophils Percent Auto 0.6 % (0-2); Eosinophils Absolute Auto 200 /uL (0-450); Eosinophils Percent Auto 2.5 % (2-4); Hematocrit 41.4 % (36-46); Hemoglobin 13.6 g/dL (12.0-16.0); Lymphocytes Absolute Auto 1300 /uL (1100-4500); Lymphocytes Percent Auto 17.3 % (25-40); Mean Corpuscular HGB Conc 32.9 % (30-36); Mean Corpuscular Hemoglobin 30.3 PG (26-34); Monocytes Absolute Auto 600 /uL (0-900); Monocytes Percent Auto 8.3 % (3-14); Neutrophils Absolute Auto 5300 /uL (1500-7000); Neutrophils Percent Auto 71.3 % (50-75); Platelet Count 249 X10^3/uL (150-400); Red Blood Cell Count 4.49 X10^6/uL (4.0-5.2); Red Cell Distribution Width 13.8 % (11.6-14.8); White Blood Cell Count 7.4 X10^3/uL (4.5-11.0)
[2020-07-28 13:11] LABS: BUN Creatinine Ratio 23.2 (6-22); Blood Urea Nitrogen 16 mg/dL (7-17); Calcium 9.3 mg/dL (8.4-10.2); Carbon Dioxide 30 mmol/L (22-32); Chloride 105 mmol/L (98-107); Estimated Glomerular Filt Rate > 60.0 mL/min (>60); Glucose 85 mg/dL (80-110); HEMOLYSIS < 15 (0-50); Potassium 4.2 mmol/L (3.4-5.1); Sodium 140 mmol/L (137-145)
== END ==
PROVIDERS: PCP Family Medicine; Referring Provider Orthopaedic Surgery; Visit Provider Orthopaedic Surgery
DX: Z01.818 Encounter for other preprocedural examination (principal); Z01.812 Encounter for preprocedural laboratory examination
CPT/HCPCS: 36415; 80048; 85025; 93005

== ENCOUNTER → 2020-08-02 14:40 | Outpatient (CLI) | payer MEDICARE, OTHER, BC, SELFPAY ==
[2020-03-10 11:17] VITALS: BMI 40.2
[2020-08-02 16:55] LABS: COVID19 -Nasal RAPID Negative (Negative)
== END ==
PROVIDERS: PCP Family Medicine; Visit Provider Physician Assistant
DX: Z11.59 Encounter for screening for other viral diseases (principal)
CPT/HCPCS: 87635

== ENCOUNTER 2020-08-05 10:26 | Inpatient (IN) | payer MEDICARE, BC, OTHER, SELFPAY ==
[2020-03-10 11:17] VITALS: BMI 40.2
[2020-07-29 08:50] VITALS: BMI 37.2
[2020-08-05] VITALS (12 sets, daily range): BP systolic 98–152; BP diastolic 53–79; PULSE 59–80; RESP 12–18; TEMP 35.9–36.8; O2SAT 91–98; BMI 37.2
[2020-08-05] MEDS: PREGABALIN 75 MG CAPSULE PO (11:34)
[2020-08-05] MEDS: ACETAMINOPHEN 325 MG TABLET 975 MG PO (11:34)
[2020-08-05] MEDS: LACTATED RINGERS 1,000 ML 42 ML IV ×2 (11:34→14:23)
[2020-08-05] MEDS: MELOXICAM 7.5 MG TABLET 15 MG PO (11:44)
[2020-08-05] MEDS: VANCOMYCIN 1,000 MG/200 ML PIGGYBACK 200 MG IV (12:30)
[2020-08-05] MEDS: GENTAMICIN 200 MG in SODIUM CHLORIDE 0.9% 100 ML 105 ML IV (12:41)
--- NOTE | 2020-08-05 13:11 | SUR.OPER ---
Beach chair with Maquet shoulder positioner. Lower body on padded OR bed. Head in foam padded head cradle, secured with straps. Non-operative arm secured <90 degrees abduction. Pillow under knees. Safety belt at thigh. Cloth tape over blanket over lower legs.
[2020-08-05] MEDS: LIDOCAINE 1% W/EPI 20 ML INJ (13:28)
--- NOTE | 2020-08-05 14:46 | DI.RAD.S_ITS ---
PROCEDURE: XR SHOULDER LT MIN 2V INDICATIONS: Status post total shoulder arthroplasty TECHNIQUE: 2 views of the shoulder were acquired. COMPARISON: [facility], CR, XR SHOULDER LT MIN 2V, 08/28/2019, 10:52. FINDINGS: Bones: No fractures or dislocations. No suspicious bony lesions. Visualized ribs appear intact. Soft tissues: No suspicious soft tissue calcifications. Small left pleural effusion. Left basilar atelectasis. IMPRESSION: Expected immediate postoperative appearance, status post total left shoulder arthroplasty. Small left pleural effusion. Left basilar atelectasis. Dictated by: Mk Yeh M.D. on 08/05/2020 at 15:49 Approved by: Mk Yeh M.D. on 08/05/2020 at 15:50
--- NOTE | 2020-08-05 14:54 | P.OP_ITS ---
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 No sign of any rotator cuff tear. Closure Type: primary Specimen(s): none sent Applied: implant(s) (Arthrex 6. Stem with 50 x 19 head and a medium glenoid) Estimated Blood Loss (mL): 100 Blood products transfused: none Procedure in detail: On date of service, Patient was met in the holding area. The operative site was signed and witnessed by the OR staff. The surgeries once again discussed with the patient and any remaining questions they had were answered fully. Patient was taken back to the operating theater and placed on the operating table in a supine position. Great care was taken to ensure that all bony prominences were properly padded. Patient was then placed into the beach chair position. The head and neck were properly positioned and secured. A timeout was performed verifying patient's name, procedure, and the operative site. The upper extremity was then prepped and draped in the normal sterile fashion. Previously, the bony anatomy and incision were marked out as well as injected with Marcaine with epinephrine. A deltopectoral approach was performed. 10 blade was used to incise the skin and fascial tissue. A deep knife was used to continue sharp dissection until the cephalic vein was visualized. The cephalic vein was dissected free allowing us to expose the deltopectoral interval. This interval was then developed. A Bean elevator was used to free up the deltoid of any scarring both superficially as well as deeply. The vein and the deltoid were taken laterally while the pectoralis was taken medially. This gave us good visualization of the strap muscles. The clavipectoral fascia was removed and the strap muscles were then retracted medially with the pectoralis. This gave us stabilization of the subscapularis. The circumflex vessels were ligated and the subscapularis was sharply excised off the lesser tuberosity and then tagged. Once the subscapularis was released we're able to dislocate the shoulder. Patient had end-stage arthritic changes to the humeral head as well as the glenoid with large osteophytes anterior inferiorly as well as posteriorly. A Ronger was then used to remove the osteophytes. Next, cutting guide was placed and a saw was used to remove the humeral head. Once the head was removed it was templated. A starting awl was then used to find the canal and then the humerus was reamed and broached. Trial stem was placed and a variety of heads were trialed. A protector placed for the osteotomy was then placed and and we turned our attention back to the subscapularis as well as the glenoid. The subscapularis was freed up and a 360? fashion. The degenerative anterior and inferior capsular tissue was removed. This was followed by removing the degenerative labral tissue from around the glenoid as well as the biceps insertion. This gave us good visualization of the glenoid. Glenoid trials were used until we found the appropriate fit and curvature. Next the center hole was drilled followed by reaming of the glenoid. The wound was copiously irrigated after reaming. Next the pegs were drilled and a trial glenoid was impacted into place. Once we were satisfied with the preparation of the glenoid, the final component was cemented into place. This was followed by impaction. We Return to our attention back to the humerus. The protector plate was removed and heads were trialed once again and so we found the appropriate fit. The trials were removed and bone tunnels were made into the humeral neck. #2 FiberWire were passed through the bone tunnels for eventual subscapularis repair. The final stem and head were impacted into place and the shoulder was reduced. It was taken through range of motion and was felt to be stable in both posterior translation as well as external and internal rotation with abduction. The subscapularis was repaired back to the lesser tuberosity through the bone tunnels. This was then reinforced with soft tissue repair. Part of the rotator interval was then closed. A drain was placed and the rest of the wound was closed in a layered fashion. The shoulder was then cleaned dried and dressed and the patient was taken to the PACU in stable condition. Patient will follow our postoperative protocol for total shoulder arthroplasty. Complications: none Post-operative Condition: stable Disposition: PACU Plan for aftercare: Patient follow our postoperative protocol for total shoulder arthroplasty
--- NOTE | 2020-08-05 15:35 | PT-IP ANOTE ---
checked on pt and pt is not up on the acute yet. will f/u tomorrow.
--- NOTE | 2020-08-05 17:24 | PC.NURSE ---
Pt arrived at 1550 from PACU. A/O, RA sats mid 80's. 2L NC applied, sats increased to 94%. Denies pain. L radial pulse palpable. Drsg c/d/i. H/V compressed and draining. Oriented to room and call system. Bed alarm placed on.
[2020-08-05] MEDS: LACTATED RINGERS 1,000 ML 125 ML IV (17:32)
[2020-08-05] MEDS: MAGNESIUM HYDROXIDE 30 ML UDC PO (21:41)
[2020-08-05] MEDS: CALCIUM CARBONATE 600 MG TABLET PO (21:41)
[2020-08-05] MEDS: DOCUSATE 100 MG CAPSULE PO (21:41)
--- NOTE | 2020-08-05 23:48 | PC.NURSE ---
Addendum entered by Francia Nagel R.N. 08/06/20 02:21: BOOK AGENT reports patient's O2 sat down to 88% so increased oxygen back to 1L/min Addendum entered by Francia Nagel R.N. 08/06/20 00:48: O2 sat now at 94% so decreased oxygen to 0.5L/min. Original Note: Patient is alert and oriented. Breath sounds CTA. On oxygen at 2L/min per NC with sat of 95% so decreased oxygen to 1L/min. HRR. Denies nausea. BT hypoactive but states she has passed flatus. Denies dysuria, frequency or urgency with urination. Able to move self in bed. Up to bathroom with SBA but states she uses walker for any distance. States she is chronically unsteady on feet. Aquacel dressing to left shoulder CDI; hemovac is intact and compressed. Return of sensation to left hand but still numb in rest of left UE. Wearing sling. Denies pain but has ice pack to incision. Wearing bilateral calf SCD's. Fall risk score is moderate; bed alarm is activated.
[2020-08-06] MEDS: VANCOMYCIN 1,000 MG/200 ML PIGGYBACK 200 MG IV (00:43)
[2020-08-06 05:15] VITALS: BP 130/67; PULSE 59; RESP 12; TEMP 36.6; O2SAT 93
[2020-08-06 06:10] LABS: Hematocrit 37.1 % (36-46); Hemoglobin 12.3 g/dL (12.0-16.0); Mean Corpuscular Hemoglobin 30.5 PG (26-34); Mean Corpuscular Volume 92.3 fL (80-100); Platelet Count 223 X10^3/uL (150-400); Red Blood Cell Count 4.02 X10^6/uL (4.0-5.2); Red Cell Distribution Width 14.2 % (11.6-14.8); White Blood Cell Count 12.7 X10^3/uL (4.5-11.0)
[2020-08-06 07:30] VITALS: BP 130/69; PULSE 62; RESP 16; TEMP 36.3; O2SAT 96
--- NOTE | 2020-08-06 09:45 | PM.DS.1 ---
History of Present Illness History of Present Illness Date Patient Seen: 08/06/20 Time Patient Seen: 09:45 Chief complaint: INPT Narrative: Patient's pain is mild. Denies fever /chills. No nausea /vomiting. Discharge Providers Provider Date of admission: 08/05/20 10:26 Discharge Date: 08/06/20 Primary care physician: Chalino Smith MD Consults: 08/05/20 11:31 Consult to Respiratory Therapy Evaluate & Treat Comment: Physician Instructions: Evaluate and treat 08/05/20 14:42 Consult to Discharge Planning Routine Comment: Consult to Physical Therapy Evaluate & Treat Comment: Physician Instructions: Evaluate and Treat Consult to Respiratory Therapy Evaluate & Treat Comment: Physician Instructions: Evaluate and treat Discharge provider: Hugh Campbell PA-C Summary Hospital Course Discharge Diagnosis: Left total shoulder arthroplasty Hospital Course: Procedure: Left total shoulder arthroplasty Same procedure as scheduled: Yes Indications: 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 No sign of any rotator cuff tear. Closure Type: primary Specimen(s): none sent Applied: implant(s) (Arthrex 6. Stem with 50 x 19 head and a medium glenoid) Estimated Blood Loss (mL): 100 Blood products transfused: none Patient admitted to the hospital. Patient consented to the above-mentioned procedure. Patient taken the operating room yesterday underwent left total shoulder arthroplasty. Patient back in her room recovering well as in stable condition. Patient will be discharged home today if cleared by physical therapy. Status at Discharge Cognitive/behavioral status at discharge: at baseline, oriented Overall status at discharge: patient is progressing back to baseline Time Spent with Patient Time spent: Less than 30 minutes Exam Vital Signs (past 8 hours): - 08/06/20 05:15 08/06/20 07:30 Temperature 97.8 F 97.4 F L Pulse Rate 59 L 62 Respiratory Rate 12 16 Blood Pressure 130/67 130/69 Pulse Oximetry 93 96 Oxygen Delivery Method Room Air Oxygen Flow Rate 1 Narrative Exam Narrative: 80-year-old female in no apparent distress. Patient up walking about her room. Left shoulder dressing is clean, dry and intact. Motor functions intact distal left upper extremity. Sensation grossly intact to light touch. Left hand is warm and dry. Objective Labs Result Diagrams: 08/06/20 05:40 Labs: Laboratory Results - last 24 hr 08/06/20 05:40 WBC 12.7 H RBC 4.02 Hgb 12.3 Hct 37.1 MCV 92.3 MCH 30.5 MCHC 33.0 RDW 14.2 Plt Count 223 Discharge Assessment & Plan Assessment and Plan Assessment: Patient progressing as expected status post left total shoulder arthroplasty. Plan of Treatment: Patient will follow-up postop protocol for total shoulder arthroplasty. Discharge home today after physical therapy. Discharge Plan Discharge Plan Patient Disposition: Home Discharge orders & Medications Prescriptions: New oxycodone-acetaminophen [Percocet] 5-325 mg tablet 2 tab PO Q4-6H PRN (Reason: pain) Qty: 60 RF: 0 hydroxyzine pamoate [Vistaril] 25 mg capsule 25 mg PO TID-QID PRN (Reason: spasms) Qty: 60 RF: 0 hydrocodone-acetaminophen 5-325 mg Tablet 2 tab PO Q4HR PRN (Reason: Pain, Moderate (4-6)) Qty: 60 RF: 0 Continued calcium carbonate [Calcium 600] 600 mg calcium (1,500 mg) Tablet 600 mg PO BID Qty: 0 RF: 0 triamcinolone acetonide 0.1 % cream See Rx Instructions .ROUTE .COMPLEX Qty: 15 RF: 1 fluocinonide 0.05 % solution See Rx Instructions Topical QDAY Qty: 60 RF: 1 citalopram 40 mg tablet 60 mg PO QDAY Qty: 135 RF: 2 enalapril maleate 10 mg tablet 10 mg PO Q DAY Qty: 90 RF: 0 spironolactone 25 mg tablet 50 mg PO QDAY Qty: 180 RF: 1 pantoprazole [Protonix] 40 mg tablet,delayed release (DR/EC) 40 mg PO QDAY Qty: 90 RF: 3 meloxicam 15 mg tablet 15 mg PO QDAY Qty: 90 RF: 0 clotrimazole-betamethasone 1-0.05 % cream 1 applictn TOP BID Qty: 15 RF: 3 mirtazapine [Remeron] 15 mg tablet 7.5 mg PO HS PRN (Reason: Sleep) RF: 0 Follow up/Referrals: Chalino Smith MD [Primary Care Provider] - Lg Yanes MD [Physician] - (2 weeks) Diet/Activity/Treatments Diet: Diet as Tolerated Activity: per protocol Cold/Heat Therapy: ice as needed Skin/Wound/Dressing Care Report to your healthcare provider any signs of infection, such as:: chills, fever, increased pain, unusual drainage and unusual redness Dressing: keep clean and dry Visit Report/Discharge Packet Instructions: DI for Heart Failure, DI for Prescription Opioid Use, DI for Shoulder Replacement Stand Alone Forms: Surgery Discharge Visit Report Forms: Patient Portal/API, Stroke Signs & Symptoms Discharge Data Primary Care Provider: Chalino Smith
[2020-08-06 09:47] VITALS: O2SAT 97
[2020-08-06] MEDS: MELOXICAM 7.5 MG TABLET 15 MG PO (10:30)
[2020-08-06] MEDS: CITALOPRAM 10 MG TABLET 60 MG PO (10:30)
[2020-08-06] MEDS: PANTOPRAZOLE 40 MG TABLET PO (10:31)
[2020-08-06] MEDS: SPIRONOLACTONE 25 MG TABLET 50 MG PO (10:31)
[2020-08-06] MEDS: DOCUSATE 100 MG CAPSULE PO (10:31)
[2020-08-06] MEDS: INFLUENZA HD VACCINE 0.7 ML SYRINGE IM (10:34)
[2020-08-06] MEDS: OXYCODONE IR 10 MG TABLET PO ×2 (10:34→13:28)
[2020-08-06] MEDS: CALCIUM CARBONATE 600 MG TABLET PO (10:36)
[2020-08-06] MEDS: ENALAPRIL 5 MG TABLET 10 MG PO (10:36)
[2020-08-06 11:32] VITALS: BP 116/72; PULSE 65; RESP 16; TEMP 36.4; O2SAT 92
--- NOTE | 2020-08-06 11:38 | PT.IIE ---
Current Diagnoses Primary osteoarthritis, right shoulder (08/05/20) Surgery Performed Operation Date: 08/05/20 12:00 Actual Procedures p Total Shoulder Arthroplasty(Left) - Lg Yanes MD Surgical History (Last Updated 07/29/20 @ 08:51 by Char Garland RN) History of arthroplasty of left knee (Acute 03/10/20) History of bunionectomy of left great toe (Acute) History of esophagogastroduodenoscopy (EGD) (Acute) Hx of bilateral cataract extraction (Acute) Hx of tonsillectomy (Acute) Medical History (Last Updated 04/08/20 @ 15:05 by Raquel Lucas WELL DRILLER HELPER) Actinic keratosis (Acute) Back pain (Acute) Cellulitis of left anterior lower leg (Acute) Depression (Acute) Dermatitis (Acute) DJD (degenerative joint disease) (Acute) Esophageal spasm (Acute) Foraminal stenosis of lumbar region (Chronic) Former smoker (Acute) GERD (gastroesophageal reflux disease) (Acute) Headache, migraine (Acute) HTN (hypertension) (Acute) LBBB (left bundle branch block) (Acute) RASHI (obstructive sleep apnea) (Acute) Sinusitis (Acute) Stasis dermatitis (Acute) Physical Therapy Inpatient Evaluation/Re-Eval M1 PT/OT-IP Prior Functional Status Start: 08/06/20 08:25 Freq: NEEDED Status: Active Protocol: Document 08/06/20 11:16 (Rec: 08/06/20 11:38 [id number]) Medical Review Prior Functional Status Medical History Reviewed Yes Diet/Fluid Consistency Regular Communication no deficits noted. able to make needs known Mobility and Gait Pt uses 4 WW for community mobility but no AD at home. Activities of Daily Living and IADL's independent with ADLs and [facility]. Granddtr did assist pt showering after her last L TKA for a few weeks. Prior Functional Level (Other details) Pt recently had L TKA in February and recovered well after. Social History Household Members other,children Living Arrangements House Number of Floors (Floors) One Floor Number of Stairs To Enter/Railing? level entry Home Environment High Toilet,Tub/Shower Doors Home Equipment Four Wheel Walker,Straight Cane,Hand Held Shower,Grab Bars Near Toilet,Grab Bars In Shower Employment Status Retired Additional Social History Comment Pt lives with granddaughter and her spouse who can assist as needed. Pt also has a handicapped son but able to assist simple ADLs. Pt has scheduled for outpatient PT starting from next week. M2 PT-IP Current Condition Start: 08/06/20 08:25 Freq: NEEDED Status: Active Protocol: Document 08/06/20 11:16 (Rec: 08/06/20 11:38 [id number]) Physical Therapy Current Condition Current Condition Evaluation Date 08/06/20 Treatment Diagnosis L TSA, difficulty in ADLs Onset Date 08/05/20 Precautions Shoulder Precautions Sling,PROM,Internal Rotation to Body,No External Rotation, No Abduction,Forward Flexion to 90 degrees,Pendulums Weight Bearing Status Weight Bearing Status Full Weight Bearing M3 PT-IP Subjective Start: 08/06/20 08:25 Freq: NEEDED Status: Active Protocol: Document 08/06/20 11:16 (Rec: 08/06/20 11:38 [id number]) Subjective Physical Therapy Visit Type Type Initial Evaluation Visit Start Time 10:15 Visit Stop Time 10:49 Total Visit Minutes 34 Notes armsling and hemovac in place Number of CHERRY SORTER Visits 0 Physical Therapy Visit Comments Patient Comments Im doing okay and i could feel my hand and forearm now. Patient Goals To return home with granddaughter assistance Therapy Pain Assessment Pain When Pain Assessed During Mobility Pain Present Pain Present Pain Reported Location Left Knee Intensity 4 Scale Used Numeric (0 - 10) Description Aching,With Movement Pain Management Techniques Timing of Activity with Medications M4 PT-IP Mobility and Gait Start: 08/06/20 08:25 Freq: NEEDED Status: Active Protocol: Document 08/06/20 11:16 (Rec: 08/06/20 11:38 [id number]) PT-Bed Mobility Assessment Supine to Sit Supine to Sit Standby Assistance Scooting Scooting to Edge of Bed Standby Assistance PT-Transfer Assessment Sit to and From Stand Sit to and from Stand Contact Guard Assistance,Use of Upper Extremities Equipment Transfer Assistive Device Gait Belt,Straight Cane Orthotic/Prosthetic Devices or Brace: Yes Transfers Transfer Destination Bed,Chair Transfer Technique Stand Step Pivot Transfer Ability Level of Assist Contact Guard Assistance Comments Mobility Comments Pt was in bed upon PT arrival. AxO x [address] but loose. Pt then sat up to long sit position from supine SBA followed by pivoting herself to R EOB. This PT assisted and educated her on donna/doff armsling and post op precautions. She then stood up from EOB without AD and able to take meds from nursing by standing unsupported safely. She was then provided a SPC and cont amb in the hallway. Pt completed 1 lap of [facility] nursing [facility] but did need 2 rest breaks at a 130 ft julio and 180 ft julio d/t SOB and fatigue. However, she showed a good 2 point reciprocal gait pattern and safely completed gait training . Pt then returned to bedside chair and rested comfortably. Denies discomfort. Call light placed within reach. Gait Assessment Gait Gait Assistance Required: Contact Guard Assist Distance (Feet) 210 Able to Maintain Weight Bearing Status Yes During Gait Assistive Devices Assistive Device Gait Belt,Straight Cane Orthotic/Prosthetic Devices or Brace: Yes Gait Deviations General Gait Pattern Flexed Trunk Factors Limiting Gait Function Factors Limiting Gait Function Decreased Activity Tolerance, Decreased Strength Comments Gait Comments see mobility comments. Stair Climbing Assessment Comments Stair Climbing Comments pt has no steps PT-Balance Assessment Sitting Balance and Reactions Static Sitting Balance Ability Normal Dynamic Sitting Balance Ability Normal Standing Balance and Reactions Static Standing Balance Ability Good Dynamic Standing Balance Ability Good Device Used SPC M5 PT-IP Objective Assessments Start: 08/06/20 08:25 Freq: NEEDED Status: Active Protocol: Document 08/06/20 11:16 (Rec: 08/06/20 11:38 [id number]) Orientation Orientation/Cognition Level of Alertness Alert Orientation Name,Age,Birthday,Month,Date, Year,Day of Week,Place, Situation Language Function Ability No Deficits Noted Safety Awareness Understands Safety Issues Memory Description No Deficits Noted Gross Range of Motion Upper Extremity ROM Assessment Left Impaired Impairments in armsling Lower Extremity ROM Assessment Within Functional Limits Strength Lower Extremity Strength Assessment Within Functional Limits Comments Strength Comments unable to assess d/t immobilization of L shoulder post surgically Sensation Assessment Sensation Gross Sensation Left UE Impaired M6 PT-IP Treatment Start: 08/06/20 08:25 Freq: NEEDED Status: Active Protocol: Document 08/06/20 11:16 (Rec: 08/06/20 11:38 [id number]) Physical Therapy Treatment Exercises Exercises Shoulder Pendulums,Elbow Flexion/Extension,Wrist ROM, Hand ROM Education Education Provided Precautions,Weight Bearing Status,Post-Op Packet,Safety M7 PT-IP Assessment and Plan Start: 08/06/20 08:25 Freq: NEEDED Status: Active Protocol: Document 08/06/20 11:16 (Rec: 08/06/20 11:38 [id number]) PT Summary Assessment and Plan Potential Rehabilitation Potential Excellent Status of Condition at Evaluation Stable Summary Impairments Pain,ROM,Strength,Bed Mobility ,Activity Tolerance Assessment Summary This is a low complexity evaluation for this 80 yo s/p POD 1 L TSA. PLOF= pt uses 4WW for community mobility but no AD at home. Shes independent for ADLs and family assisted IADLS sometimes. CLOF= pt will be immobilized for 6 weeks. Completed gait training with SPC on RUE today and she did very well. Also educated pt on armsling fitting and pt is receptive with her post op precautions. Will conduct CG training this pm with granddtr to go over post op precatuions and armsling fitting prior to d/c Goals Bed Mobility Goal Standby Assistance Transfer Goal Standby Assistance,Cane Gait Goal Standby Assistance,Cane Gait Distance 200 Days to Meet Goals 1 Frequency of Treatment Frequency Of Treatment Twice a Day Treatment Plan Physical Therapy Treatment Plan Bed Mobility Training,Transfer Training,Gait Training, Therapeutic Exercise,Balance Retraining,Post Op Education, Discharge Planning,Hot or Cold Pack,Neuromuscular Re-ed Other Recommendations and Next Treatment CG training on armsling and Focus precautions Recommendations To Nursing Amount of Assist Needed 1 Person Assist Discharge Recommendations PT Discharge Recommendations Home with Assistance, Outpatient PT Equipment Needed for Home Before tub bench Discharge Transportation Needs at Discharge Private Vehicle
--- NOTE | 2020-08-06 11:42 | PC.NURSE ---
Removed drian to left shoulder, patient tolerated well.
--- NOTE | 2020-08-06 13:03 | CM.DANOTE ---
Discharge Planning/Care Management DCP: assessment. Case received, EMR reviewed and met with pt after seeing d/c order. Introduced self and role. Pt is an 80 year old female who admitted yesterday for a planned L TSA Payer: Medicare and [facility] Surgeon: Dr. Saenz PCP: Dr. Crow Smith Pt confirms she will d/c home today with her granddaughter's prn assist. Sling is in place. She has been using the cane with pt. Caregiver training planned with PT and Neyda before pt leaves this afternoon. OUTPT PT is planned. Pt says she is comfortable with the d/c for today. CM Discharge Assessment Start: 08/06/20 13:00 Freq: Status: Active Protocol: Document 08/06/20 13:01 ITV (Rec: 08/06/20 13:03 IT [id number]) Discharge Planning Assessment Advance Directives? Yes Advance Directives on File Yes History Provided By Patient,Medical Record Prior Living Arrangements House Household Members other,children Comment pt's granddaughter Neyda and her spouse live with pt and provide prn assist. Pt has a disabled foster son who has lived with her for over 50 years and she is now his caregiver Type of transporation used prior to Drives own vehicle admit Independent with ADL's Yes Is patient alert and oriented? Yes DME Already Rented / Owned FWW / Walker Comment 4ww. will be using a single point care as she recovers. Review Status In Process Pre-Anesthesia Assessment Start: 07/29/20 08:50 Freq: Status: Complete Protocol: Document 07/29/20 08:50 CAB (Rec: 07/29/20 09:16 CAB [id number]) Pre-Anesthesia Assessment Patient Information Reviewed Via Phone Assessment Assessment Completed With Patient Diagnostic Results BMP/CMP,CBC,EKG Comment Labs/EKG @ [facility], COVID screen @ [facility] 08/02/20 Primary Care Provider Chalino Smtih Medical Clearance Received Yes Seen Specialist in Last 12 Months Yes Specialist Seen Musical String Maker,Orthopedist Comment PCP clearance scanned Primary Language Hungarian Preferred Language Hungarian Franchise Field Consultant Required No Height 160.02 cm Weight 95.254 kg Body Mass Index (BMI) 37.2 Hearing Ability Normal Visual Assist Magnifying Glass Dentition Type Teeth, Natural Present,Teeth, Missing Barriers to Learning None Other Aids Yes: CPAP Hx Anesthesia Reactions Yes: pt reports slow to wake up Hx Family Anesthesia Reaction No Hx Malignant Hyperthermia No Hx Blood Transfusions No Anesthesia Review Requested Yes: Reviewed prior to scheduling alcohol intake current alcohol intake frequency holidays/special occasions only Smoking Status Former smoker Tobacco type cigarettes how long ago did patient quit smoking Quit age 49 Substance Use Type other Comment CBD oils Pain Present Pain Reported Musculoskeletal Symptoms Abnormal Gait,Back Pain, Difficulty Walking,Joint Pain History of Falling (Recent or History of No ) Patient is completely paralyzed or No completely immobile Prosthesis or Orthotic Device Front Wheel Walker Mental Status Oriented to own ability Comment Balance issue Is patient on oxygen? No Does patient have KEE/SOB No Hx Sleep Apnea Yes: CPAP compliance unknown CPAP/BIPAP use prescribed and used routinely Will Bring CPAP/BIPAP DOS Yes Currently Taking a Beta Siobhan No Can You Climb a Flight of Stairs Without No SOB Hx Chest Pain No Hx SOB No Hx Syncope or Dizziness No Anti-Coagulant Therapy No Has a Print Operator No Cardiac Testing No Hx Pacemaker/ICD No Pacemaker Rep Required? No Cardiac Clearance Received Not Applicable Comment LBBB old Diet Type At Home Regular,Gluten Free dysphagia No Gastrointestinal Symptoms Constipation,Reflux Genitourinary Symptoms Non-Menses Vaginal Bleeding Urinary Catheter Present No Hx Urinary Self Catheterization No Diabetes No Patient No Lactating No Hx Drug Resistant Organism No Presence of External or Internal Medical Yes: CPAP, bilat eye lens, Devices left toe hardware, lt knee Have you had any close contact with No someone diagnosed with COVID-19? Marital Status / Lives With other,children Prior Living Arrangements House Support System Child/Children Does the Patient Have Assistance After Yes Surgery Patient Discharge Plan Description Return Home Comment Pt advised overnight length of stay per surgeon Feels Safe in Current Environment Yes Been Physically Hurt or Threatened By a No Person in Current Environment Do you have thoughts of harming yourself None or others? Are you currently considering suicide? No Do you have a plan to hurt yourself or No Plan others? Do You Have Any Spiritual Beliefs That No May Affect Your HC Choices? Do You Have Any Cultural Practices That No May Affect Your HC Choices? Comment Pura Who Can We Speak to About Patient's Care Family, friends Identifying Code for Release of Patient Declines to issue Information Health Care Proxy/Next of Kin Neyda (granddaughter) Health Care Proxy Emergency Contact Name Neyda (granddaughter) Emergency Contact Advance Directives? Yes Advance Directives on File Yes Power of Asian Art Curator Yes Power of Asian Art Curator Name Yo (son) Power of Asian Art Curator PAC Instructions Bring CPAP/BIPAP,Durable medical equipment,Medications to take/avoid,Nasal antibiotic ,No ETOH/petroleum product on skin DOS,NPO,Pre-surgical wash ,Sturdy shoes/comfortable clothes,Do not bring valuables and remove jewelry
--- NOTE | 2020-08-06 13:58 | PT.IPTN ---
Current Diagnoses Primary osteoarthritis, right shoulder (08/05/20) Surgery Performed Operation Date: 08/05/20 12:00 Actual Procedures p Total Shoulder Arthroplasty(Left) - Lg Yanes MD Physical Therapy Treatment Note M2 PT-IP Current Condition Start: 08/06/20 08:25 Freq: NEEDED Status: Discharge Protocol: Document 08/06/20 11:16 HH (Rec: 08/06/20 11:38 HH [id number]) Physical Therapy Current Condition Current Condition Evaluation Date 08/06/20 Treatment Diagnosis L TSA, difficulty in ADLs Onset Date 08/05/20 Precautions Shoulder Precautions Sling,PROM,Internal Rotation to Body,No External Rotation, No Abduction,Forward Flexion to 90 degrees,Pendulums Weight Bearing Status Weight Bearing Status Full Weight Bearing M3 PT-IP Subjective Start: 08/06/20 08:25 Freq: NEEDED Status: Discharge Protocol: Document 08/06/20 13:58 AB (Rec: 08/06/20 15:34 AB [id number]) Subjective Physical Therapy Visit Type Type Treatment Note Visit Start Time 13:58 Visit Stop Time 14:23 Total Visit Minutes 25 Number of PUMP INSTALLER Visits 0 Physical Therapy Visit Comments Patient Comments pt is agreeable to do PT M4 PT-IP Mobility and Gait Start: 08/06/20 08:25 Freq: NEEDED Status: Discharge Protocol: Document 08/06/20 13:58 AB (Rec: 08/06/20 15:34 AB [id number]) PT-Transfer Assessment Sit to and From Stand Sit to and from Stand Standby Assistance Comments Mobility Comments caregiver training conducted. pt's granddaughter educated on pt's shoulder precautions, elbow/wrist exercises, pendulum and sling management. grand daughter was able to don/doff sling on pt. pt completed elbow/wrist/hand exercises. also attempted pendulum exercise but pt unable to complete safely but able to dangle LUE to position . educated pt and grand daughter regarding positioning to assist with dressing and hygiene care. pt ambulated in room using [facility] SBA. pt sat back on chair. pt and daughter without further concerns. Gait Assessment Gait Gait Assistance Required: Standby Assistance Distance (Feet) 30 Able to Maintain Weight Bearing Status Yes During Gait Assistive Devices Assistive Device Straight Cane Orthotic/Prosthetic Devices or Brace: Yes Gait Deviations General Gait Pattern Antalgic,Decreased Stride Length,Decreased Feet Clearance Factors Limiting Gait Function Factors Limiting Gait Function Decreased Activity Tolerance, Decreased Strength,Limited Range of Motion,Pain,Poor Balance M5 PT-IP Objective Assessments Start: 08/06/20 08:25 Freq: NEEDED Status: Discharge Protocol: Document 08/06/20 11:16 HH (Rec: 08/06/20 11:38 HH [id number]) Orientation Orientation/Cognition Level of Alertness Alert Orientation Name,Age,Birthday,Month,Date, Year,Day of Week,Place, Situation Language Function Ability No Deficits Noted Safety Awareness Understands Safety Issues Memory Description No Deficits Noted Gross Range of Motion Upper Extremity ROM Assessment Left Impaired Impairments in armsling Lower Extremity ROM Assessment Within Functional Limits Strength Lower Extremity Strength Assessment Within Functional Limits Comments Strength Comments unable to assess d/t immobilization of L shoulder post surgically Sensation Assessment Sensation Gross Sensation Left UE Impaired M6 PT-IP Treatment Start: 08/06/20 08:25 Freq: NEEDED Status: Discharge Protocol: Document 08/06/20 13:58 AB (Rec: 08/06/20 15:34 AB [id number]) Physical Therapy Treatment Exercises Exercises Shoulder Pendulums,Elbow Flexion/Extension,Wrist ROM, Hand ROM Education Education Provided Precautions,Weight Bearing Status,Post-Op Packet,Safety M7 PT-IP Assessment and Plan Start: 08/06/20 08:25 Freq: NEEDED Status: Discharge Protocol: Document 08/06/20 13:58 AB (Rec: 08/06/20 15:34 AB [id number]) PT Summary Assessment and Plan Potential Rehabilitation Potential Good Summary Impairments Pain,ROM,Strength,Balance, Coordination,Sensation,Tone, Cognition,Bed Mobility, Transfers,Gait,Activity Tolerance Progress Towards Goals Slow Progress due to Medical Issues,Slow Progress due to Activity Tolerance Assessment Summary caregiver training conducted and pt's daughter was able to assist pt safely. pt plans to go home today and is set up for outpt PT. Goals Bed Mobility Goal Standby Assistance Transfer Goal Standby Assistance,Cane Gait Goal Standby Assistance,Cane Gait Distance 200 Days to Meet Goals 1 Frequency of Treatment Frequency Of Treatment Twice a Day Treatment Plan Physical Therapy Treatment Plan Bed Mobility Training,Transfer Training,Gait Training, Therapeutic Exercise,Balance Retraining,Post Op Education, Discharge Planning,Hot or Cold Pack,Neuromuscular Re-ed Recommendations To Nursing Amount of Assist Needed 1 Person Assist Discharge Recommendations PT Discharge Recommendations Home with Assistance, Outpatient PT Transportation Needs at Discharge Private Vehicle
--- NOTE | 2020-08-06 14:53 | PC.NURSE ---
Discharge: Pt seen by PT and passed to be safe at home. Sling on and fits correctly. Lt arm is still numb feeling but can move fingers, has a brisk cap refill, strong radial pulse. Reviewed d/c packet. Questions answered. Pt d/c home via auto w/granddtr.
== END 2020-08-06 14:30 | disposition home or self-care (01) | DRG 483 ==
PROVIDERS: Admitting Provider Orthopaedic Surgery; PCP Family Medicine; Referring Provider Orthopaedic Surgery; Visit Provider Orthopaedic Surgery
PROC: 0RRK0JZ Replacement of Left Shoulder Joint with Synthetic Substitute, Open Approach (ICD-10-PCS; CPT 23472; principal; 2020-08-05 12:00)
DX: M19.012 Primary osteoarthritis, left shoulder (principal); E66.9 Obesity, unspecified; G47.33 Obstructive sleep apnea (adult) (pediatric); I10 Essential (primary) hypertension; K21.9 Gastro-esophageal reflux disease without esophagitis; F32.9 Major depressive disorder, single episode, unspecified; Z68.37 Body mass index [BMI] 37.0-37.9, adult; Z11.59 Encounter for screening for other viral diseases
CPT/HCPCS: 36415; 73030; 85027; 87635; 90471; 90662; 94760; 97116; 97161; 97530; C1776; J1100; J2250; J2405; J3010

== ENCOUNTER → 2020-10-15 14:39 | Outpatient (CLI) | payer MEDICARE, OTHER, BC, SELFPAY ==
[2020-08-05 16:30] VITALS: BMI 37.2
[2020-10-15] MEDS: COVID-19 VACC #1, MRNA(MOD) 100 MCG/0.5 ML VIAL IM (14:47)
== END ==
PROVIDERS: PCP Family Medicine; Visit Provider Internal Medicine
DX: Z23 Encounter for immunization (principal)
CPT/HCPCS: 0011A; 91301

== ENCOUNTER → 2020-10-26 14:37 | Outpatient (CLI) | payer MEDICARE, OTHER, BC, SELFPAY ==
[2020-08-05 16:30] VITALS: BMI 37.2
[2020-10-26 15:32] LABS: Cholesterol 197 mg/dL (140-199); HDL Cholesterol 49 mg/dL (40-60); LDL Cholesterol Calculated 122 mg/dL (<100); Triglycerides 129 mg/dL (35-150)
[2020-10-26 15:44] LABS: Free T3, Triiodothyronine Free 3.42 pg/mL (2.77-5.27); Free T4, Direct Thyroxine 1.01 ng/dL (0.78-2.19)
[2020-10-26 15:57] LABS: Thyroid Stimulating Hormone 2.63 uIU/mL (0.47-4.68)
== END ==
PROVIDERS: PCP Family Medicine; Referring Provider Family Medicine; Visit Provider Family Medicine
DX: G47.30 Sleep apnea, unspecified (principal); Z13.220 Encounter for screening for lipoid disorders; L65.9 Nonscarring hair loss, unspecified
CPT/HCPCS: 36415; 80061; 84439; 84443; 84481

== ENCOUNTER → 2020-11-12 14:33 | Outpatient (CLI) | payer MEDICARE, OTHER, BC, SELFPAY ==
[2020-08-05 16:30] VITALS: BMI 37.2
[2020-11-12] MEDS: COVID-19 VACC #2, MRNA(MOD) 100 MCG/0.5 ML VIAL IM (14:40)
== END ==
PROVIDERS: PCP Family Medicine; Visit Provider Internal Medicine
DX: Z23 Encounter for immunization (principal)
CPT/HCPCS: 0012A; 91301